=== PATIENT | male | born 1955 | race Caucasian/White ===

== ENCOUNTER 2023-10-25 09:32 | Inpatient (IN) | payer MEDICARE, OTHER, SELFPAY ==
--- NOTE | 2023-10-13 15:02 | VNURNOTE ---
Patient is scheduled for an elective R TKA on 10/25/[address] Alex. He is a same day patient. Spoke with patient prior to surgery.
Patient reports that he lives with his in a MULTI story home. He has 3 steps to enter. 1 flight of stairs to bedroom. He may stay on the first floor which has a bathroom on it.
He currently functions independently. He has a cane and rolling walker.
He nerver had VN services.
PCP is Dr Ike Narvaez.
Pharm: [facility]
Discussed orthopedic program and post surgical plans.
Reviewed that he will have VN services initially and will then start outpatient PT.
Patient selects VN for his home care needs and will go to [facility] for outpatient PT. He needs a Rx for out pt PT. Ortho office notified.
Patient is in agreement with plan and states that his will be home with him.
Plan: JOE RN, PT SDS protocol, then outpt PT at [facility]
--- NOTE | 2023-10-13 16:26 | VNURNOTE ---
Addendum : Clarified with Meka at [facility]. Patient is NOT SDS joint protocol. [facility] SN, PT within a day or 2 after DC. patient called and updated, reviewed plan. He is in agreement. Referral updated.
--- NOTE | 2023-10-19 14:44 | PTCARENOTE ---
Spoke with about the patient needing a mupirocin prescription called. Also confirmed that the patient will not be going home the same day, even though the patient told the PAT nurse that he thought he was.
[2023-10-25] VITALS (11 sets, daily range): BP systolic 80–171; BP diastolic 37–90; PULSE 59; BMI 29.1
[2023-10-25] MEDS: NORMOSOL-R/PLASMALYTE-A 1000 IV ×2 (09:45→15:31)
[2023-10-25] MEDS: TYLENOL 650 MG PO ×3 (09:54→21:12)
[2023-10-25] MEDS: CELEBREX 200 MG PO (09:54)
[2023-10-25 12:31] LABS: Glycohemoglobin (HgbA1c) 5.2 % (4.0-5.6)
--- NOTE | 2023-10-25 12:58 | W.DS.TRANS ---
DC Summary - Field Service Coordinator
-
Discharge Instructions:
Sleep Apnea Risk Intermediate
Discharge Diagnosis/Procedures R TKA Dr. Alex 10/25/23
Diet As tolerated
Activity With Walker
Driving Restrictions No driving
Bathing Restrictions OK to Shower
Instructions:
Stand-Alone Forms: Total Hip/Knee Replacement D/C
Changes to Home Medications: Yes
Discharge Medications:
DC Medications w/original date entered in [employer]
ascorbic acid (vitamin C) 1,000 mg tablet (Vitamin C) 500 mg PO DAILY 10/19/23
kzwetfrqrdy-rlatzctee-rxd C-Mn 500 mg-400 mg capsule 1 cap PO DAILY 10/19/23
multivitamin 1 tab PO DAILY 10/19/23
mupirocin 2 % topical ointment 1 applic topical BID 10/19/23
omega 5-pen-osj-fish oil 1,000 mg (120 mg-180 mg) capsule (Fish Oil) 1 cap PO DAILY 10/19/23
tadalafil 5 mg tablet (Cialis) 5 mg PO PRN PRN ED 10/19/23
acetaminophen 325 mg capsule (Tylenol) 650 mg (2 x 325 mg) PO QID #2 caps 10/25/23
aspirin 325 mg tablet 325 mg PO DAILY blood clot prevention #1 tab 10/25/23
celecoxib 200 mg capsule 200 mg PO DAILY anti-inflammatory #14 caps 10/25/23
dexamethasone 4 mg tablet 4 mg PO BID inflammation #6 tabs 10/25/23
docusate sodium 100 mg capsule (Colace) 100 mg PO BID stool softner #1 cap 10/25/23
famotidine 20 mg tablet 20 mg PO HS GI prophylaxis #30 tabs 10/25/23
gabapentin 300 mg capsule 300 mg PO HS sleep/pain #10 caps 10/25/23
magnesium hydroxide 400 mg/5 mL oral suspension (Milk of Magnesia) 30 ml PO HS PRN Constipation #1 mL 10/25/23
ondansetron 4 mg disintegrating tablet 4 mg PO Q6H PRN n/v #20 tabs 10/25/23
oxycodone 5 mg tablet 5 mg PO Q6H PRN 1 tab moderate pain, 2 tabs severe pain #30 tabs 10/25/23
sennosides 8.6 mg tablet (Senokot) 17.2 mg (2 x 8.6 mg) PO BID laxative #2 tabs 10/25/23
Home Medication Changes
aspirin 325 mg tablet 325 mg PO DAILY blood clot prevention #1 tab 10/25/23�
celecoxib 200 mg capsule 200 mg PO DAILY anti-inflammatory #14 caps 10/25/23�
dexamethasone 4 mg tablet 4 mg PO BID inflammation #6 tabs 10/25/23�
docusate sodium 100 mg capsule (Colace) 100 mg PO BID stool softner #1 cap 10/25/23�
famotidine 20 mg tablet 20 mg PO HS GI prophylaxis #30 tabs 10/25/23�
gabapentin 300 mg capsule 300 mg PO HS sleep/pain #10 caps 10/25/23�
magnesium hydroxide 400 mg/5 mL oral suspension (Milk of Magnesia) 30 ml PO HS PRN Constipation #1 mL 10/25/23�
ondansetron 4 mg disintegrating tablet 4 mg PO Q6H PRN n/v #20 tabs 10/25/23�
oxycodone 5 mg tablet 5 mg PO Q6H PRN 1 tab moderate pain, 2 tabs severe pain #30 tabs 10/25/23�
Pending Results: No
--- NOTE | 2023-10-25 14:22 | OR.RPT ---
Operative Report
Operative Report
Anesthesia Type:
Spinal/General
Operative Indications:
Right knee osteoarthritis
Operative Findings :
Significant medial wear of the posterior medial tibial,
Complications:
None
Implants:
Size 12 persona femur, size G persona tibia, 9 mm x 35 mm patella poly, 10 mm MC poly
Procedure and Technique:
Right total knee arthroplasty
INDICATIONS FOR PROCEDURE:
68-year-old male failed conservative treatment for right knee osteoarthritis to include activity modification, anti-inflammatory medications, home exercise program, physical therapy, injections was indicated for operative intervention. We discussed
risks benefits and alternatives of surgery. We discussed the usual expected perioperative postoperative course. After discussion written informed consent was obtained
OPERATIVE PROCEDURE:
Patient was seen identified the preoperative holding area. Operative extremity was marked. All questions were addressed. He was taken to the operating room where anesthesia was administered. Operative extremity was then prepped and draped in
normal sterile fashion. Nonsterile tourniquet was applied. The patient was noted to have approximately 10 degree flexion contracture. Timeout was performed again identifying the correct operative extremity. Preoperative antibiotics were
addressed. Standard anterior approach to the knee was taken. Sharp dissection was carried through skin subcutaneous tissues. Medial parapatellar approach was taken. Soft tissues including fat pad were excised. Medial releases were performed.
Patient was noted to have significant medial osteophytes that were also removed. Distal femoral cut was then performed according to technique guide. Attention was then turned to the tibia where tibia cut was performed utilizing a extramedullary
guide. After the initial cut, 10 mm poly was not able to be placed. Further medial releases osteophytes were excised. Again patient was noted to be quite significantly tight medially. There was also noted to be significant loose bodies as well
as calcified medial meniscus. There is noted to be significant erosion of the proximal medial tibial plateau. Further proximal tibia cuts were performed. Decision was made to proceed with a form 1 guide and cuts for better visualization. This
was performed again there was noted to be significant tightness medially. Additional proximal tibia cuts were performed with continued tightness in extension. Is felt to be appropriate flexion. I distal femur cut was then reperformed and formal
guide was replaced and additional chamfer cuts were performed. This did show some improvement but again was continued to be quite tight in complete extension. An additional 2 mm were then removed from the proximal tibia cut and ultimately were
able to place a 10 mm trial poly. The patella was then prepared according to technique guide. Trials were then placed and there was complete extension and good stability. Trial components were then removed and proximal tibia was then prepared.
Wound was copiously irrigated with normal saline solution. Final components were then cemented in appropriate position. Hemostasis was achieved and then final 10 mm MC poly was placed with complete extension and good stability in flexion and
extension. Wound was again copiously irrigated normal saline solution as well as Betadine solution. Wound was then closed in layered fashion utilizing #1 Vicryl for deep fascial layer 2-0 Vicryl for subcutaneous layer and pascual for skin.
Aquacel dressing was applied. Anesthesia was reversed and patient was taken to PACU in stable condition. Patient will be admitted overnight and discharged in the a.m. Plan to see patient back 2 weeks postop. Recommend aspirin for DVT prophylaxis.
Disposition:
PACU stable condition
[2023-10-25] MEDS: ROXICODONE 5 MG PO (15:09)
--- NOTE | 2023-10-25 15:39 | PTCARENOTE ---
1520: Patient arrived to 2S. Full head to toe assessment completed. B/L LE neurovascular assessment completed. Aquacell on R knee with scant amount of drainage. Patient on RA with SpO2 greater than 92%. IVF running per order. Call dominguez within reach
and bed in lowest position.
[2023-10-25] MEDS: ASPIRIN 325 MG PO (17:28)
[2023-10-25] MEDS: COLACE 100 MG PO (21:12)
[2023-10-25] MEDS: ULTRAM 50 MG PO (21:12)
[2023-10-25] MEDS: TORADOL 15 MG IV (21:13)
[2023-10-25] MEDS: SENOKOT 17.2 MG PO (21:13)
[2023-10-25] MEDS: BACTROBAN 2% OINTMENT 1 APPLIC NASAL (21:13)
[2023-10-25] MEDS: DECADRON 4 MG PO (21:13)
[2023-10-25] MEDS: NEURONTIN 300 MG PO (22:58)
[2023-10-25] MEDS: ANCEF 5 IV (22:58)
[2023-10-25] MEDS: TYLENOL PO (23:11)
[2023-10-26] MEDS: TYLENOL 650 MG PO ×2 (03:15→08:40)
[2023-10-26 03:25] VITALS: BP 137/87
--- NOTE | 2023-10-26 04:05 | DOWNTIME ---
There was a [employer] Downtime on 10/26/2023 from 0100 to 10/26/2023 at 0300. Downtime documentation of patient's care, including medication administrations, has been reconciled in the electronic record per guidelines. Refer to the
patient's paper chart under the miscellaneous tab to see printed paper medication records and downtime forms.
[2023-10-26] MEDS: ANCEF 5 IV (05:26)
[2023-10-26] MEDS: FLUSH (NSS) 2 FLUSH IV (05:26)
[2023-10-26 07:12] VITALS: BP 114/67
--- NOTE | 2023-10-26 07:35 | W.PN.ORTHO ---
Today's Communication / Plan
-
68-year-old male postop day 1 status post right total knee arthroplasty doing well
Weightbearing as tolerated right lower extremity
PT OT
Pain control
DVT prophylaxis: Mechanical and chemical
Dispo: Discharge today pending physical therapy evaluation
Subjective
.
.:
Patient reports pain is well-controlled this morning. He reports that he is able to ambulate without too much difficulty using a walker.
Vital Signs and Labs
.
Vital Signs and Labs:
Temp Pulse Resp BP Pulse Ox
98.5 F 62 16 114/67 93
10/26/23 07:12 10/26/23 07:12 10/26/23 07:12 10/26/23 07:12 10/26/23 07:12
Physical Exam
-
Musculoskeletal right lower extremity
Dressing with minimal bloody drainage
Positive EHL, FHL, ankle dorsi and plantarflexion
Brisk cap refill
[2023-10-26] MEDS: ULTRAM 50 MG PO (08:38)
[2023-10-26] MEDS: CELEBREX 200 MG PO (08:39)
[2023-10-26] MEDS: BACTROBAN 2% OINTMENT 1 APPLIC NASAL (08:39)
[2023-10-26] MEDS: TORADOL 15 MG IV (08:39)
[2023-10-26] MEDS: ASPIRIN 325 MG PO (08:39)
[2023-10-26] MEDS: COLACE 100 MG PO (08:40)
[2023-10-26] MEDS: SENOKOT 17.2 MG PO (08:40)
[2023-10-26] MEDS: DECADRON 4 MG PO (08:43)
[2023-10-26 09:37] VITALS: BP 99/63; PULSE 66
[2023-10-26 10:16] VITALS: BP 104/62; PULSE 59; O2SAT 95
[2023-10-26 10:35] VITALS: BP 115/63
[2023-10-26 10:45] VITALS: BP 117/66
--- NOTE | 2023-10-26 11:43 | CM ---
CM met with pt and spouse bedside
They reside in a 2SH with 3STE, full flight to second floor
Pt is independent with his ADLs without any ADs
Has a WW and SPC
No financial insecurities
PCP- Ike Narvaez
Rx- DAVIDSON Paige
PT/OT evals and plan for outpatient therapy on dc
Appt scheduled for Thrs 10/26 1330 [facility]
Outpt script not in folder
Call with [facility] office and CM obtained script via fax
Provided to pt
Alerted [facility] of dc dispo
Discharge Disposition- home with outpt therapy
== END 2023-10-26 11:45 | disposition home or self-care (01) | DRG 470 ==
LOC: 2 SOUTH 09:32
PROVIDERS: ADMITTING PHYSICIAN Orthopaedic Surgery; FAMILY PHYSICIAN Nurse Practitioner Family
PROC: 0SRC0J9 Replacement of Right Knee Joint with Synthetic Substitute, Cemented, Open Approach (ICD-10-PCS; 2023-10-25)
DX: M17.11 Unilateral primary osteoarthritis, right knee (principal)
CPT/HCPCS: 73560; 83036; 87070; 97110; 97116; 97162; 97166; 97530; 97535; C1713; C1776